=== PATIENT | female | born 1990 | race Caucasian/White ===

== ENCOUNTER 2021-10-03 20:59 | Emergency (ER) | payer OTHER ==
[~2021-10-03] VITALS: Ht 157.5 cm; Wt 81.7 kg
[2021-10-03 22:16] VITALS: BP 133/54
== END 2021-10-03 22:17 | disposition home or self-care (01) ==
LOC: M.ERS 20:59
DX: U07.1 COVID-19 (principal); F17.210 Nicotine dependence, cigarettes, uncomplicated; Z88.0 Allergy status to penicillin